=== PATIENT | female | born 1995 | race African-American/Black ===

== ENCOUNTER 2017-07-01 18:54 | Emergency (ER) | payer MEDICAID ==
[2017-07-01 18:56] VITALS: BP 126/74; PULSE 104; RESP 16; TEMP 99.8; O2SAT 99
--- NOTE | 2017-07-01 19:24 | PD ---
HPI Chief Complaint: Cold / Flu Symptoms Time Seen by Provider: 19:16 Travel History International Travel<30 days: No Contact w/Intl Traveler<30days: No Traveled to known affect area: No History of Present Illness HPI 22-year-old black female presents to the emergency department with a one-day history of fever with a MAXIMUM TEMPERATURE 103, myalgias, arthralgias and general malaise. 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 She denies any vomiting but feels nausea at times. No ear pain, sore throat, cough, shortness of breath, vomiting, abdominal pain or dysuria or rashes. PFSH Past Medical History Medical History: Denies Significant Hx Tetanus Vaccination: < 5 Years ?: Unknown LMP: ON NEXPLANON : 1 Para: 1 Social History Alcohol Use: No Tobacco Use: No Substance Use: No Allergies-Medications (Allergen,Severity, Reaction): Coded Allergies: amoxicillin (Unverified Allergy, Intermediate, HIVES,VOMITING, 03/19/17) clavulanic acid (Unverified Allergy, Intermediate, HIVES,VOMITING, 03/19/17 ) Reported Meds & Prescriptions Reported Meds & Active Scripts Active No Active Prescriptions or Reported Medications Review of Systems Except as stated in HPI: all other systems reviewed are Neg Physical Exam Narrative GENERAL: Well-developed, well-nourished in no acute distress. Nontoxic appearing. HEAD: Normocephalic, atraumatic. EYES: Pupils equal round and reactive. Extraocular motions intact. No scleral icterus. No injection or drainage. ENT: TMs clear without erythema. The external auditory canals clear. Nose: clear . Posterior pharynx is pink and moist. No tonsillar edema or exudate. Uvula midline. Airway patent. NECK: Trachea midline.Supple, nontender, moves head freely. No central bony tenderness or spasm. CARDIOVASCULAR: Regular rate and rhythm without murmurs, gallops, or rubs. RESPIRATORY: Clear to auscultation. Breath sounds equal bilaterally. No wheezes , rales, or rhonchi. GASTROINTESTINAL: Abdomen soft, non-tender, nondistended. No hepato-splenomegaly , or palpable masses. No guarding. EXTREMITIES: No clubbing, cyanosis, or edema. No joint tenderness, effusion, or edema noted. BACK: Nontender without deformity or crepitance. No flank tenderness. Data Data Last Documented VS Vital Signs Date Time Temp Pulse Resp B/P (MAP) Pulse Ox O2 Delivery O2 Flow Rate FiO2 07/01/17 18:56 99.8 104 16 126/74 (91) 99 Room Air Orders Orders Ed Discharge Order (07/01/17 19:21) MDM Medical Decision Making Medical Screen Exam Complete: Yes Emergency Medical Condition: Yes Medical Record Reviewed: Yes Differential Diagnosis MDM: High Differential diagnoses: Pneumonia, bronchitis, URI, influenza Narrative Course This is an influenza-like illness Diagnosis Primary Impression: Influenza-like illness Patient Instructions: General Instructions Departure Forms: Tests/Procedures, Work Release Special Instructions: NO WORK OR SCHOOL 5 DAYS. Additional Instructions: Rest. Increase fluids. 3 Advil every 6 hours as needed for fever, and muscle pain. Followup with your Dr. in one week. Return to the ER for any problems. Scripts No Active Prescriptions or Reported Meds Disposition: 01 DISCHARGE HOME Condition: Stable Sidney Tobar Jul 01, 2017 19:24
== END 2017-07-01 19:51 | disposition home or self-care (01) ==
LOC: NEPK 18:54
DX: J11.1 Influenza due to unidentified influenza virus with other respiratory manifestations (principal)
CPT/HCPCS: 99282

== ENCOUNTER 2017-07-04 12:01 | Emergency (ER) | payer MEDICAID ==
[~2017-07-04] VITALS: Ht 157.5 cm; Wt 75.0 kg
[2017-07-04 12:02] VITALS: BP 138/74; PULSE 106; RESP 18; TEMP 99.7; O2SAT 100
[2017-07-04] MEDS ORDERED: SODIUM CHLOR 0.9% 1000 ML INJ 1,000 ML IV SCH (12:30)
[2017-07-04] MEDS ORDERED: SODIUM CHLORIDE 0.9% FLUSH 10 ML FLUSH IV FLUSH PRN (12:30)
[2017-07-04] MEDS ORDERED: ETON1IMP I-DERMAL (12:35)
--- NOTE | 2017-07-04 12:39 | PD ---
HPI Chief Complaint: Abdominal Pain Time Seen by Provider: 12:15 Travel History International Travel<30 days: No Contact w/Intl Traveler<30days: No Traveled to known affect area: No History of Present Illness HPI 22-year-old female presents to the emergency department for evaluation of abdominal pain that started approximately 3 weeks ago. She states she started with fevers on Friday up to 104. Patient reports intermittent in bloody vaginal discharge over the past 3 weeks. She states that she went to the [facility] here at [place] and was sent here to the emergency department. Patient states that while in the clinic, she had a negative urine test and also had a pelvic exam completed. However, there is no note in the computer to see what they did. The patient denies any current chest pain or shortness of breath. She reports lower abdominal pain, worse in the right lower quadrant. Patient denies any urinary symptoms. She reports one sexual partner for the past year and a half and denies risk of STD. She denies any previous abdominal surgeries. Moderate severity. No exacerbating or alleviating factors. PFSH Past Medical History Medical History: Denies Significant Hx Tetanus Vaccination: Unknown ?: Not LMP: APR 2017 : 1 Para: 1 Past Surgical History Surgical History: No Previous Surgery Social History Alcohol Use: No Tobacco Use: No Substance Use: No Allergies-Medications (Allergen,Severity, Reaction): Coded Allergies: amoxicillin (Unverified Allergy, Intermediate, HIVES,VOMITING, 07/04/17) clavulanic acid (Unverified Allergy, Intermediate, HIVES,VOMITING, 07/04/17 ) Reported Meds & Prescriptions Reported Meds & Active Scripts Active Reported Nexplanon Implant (Etonogestrel Implant) 68 Mg Imp 68 Mg I-DERMAL ONCE Review of Systems Except as stated in HPI: all other systems reviewed are Neg Physical Exam Narrative GENERAL: Well-nourished, well-developed female patient, ambulatory. Afebrile. SKIN: Focused skin assessment warm/dry. HEAD: Normocephalic. Atraumatic. EYES: No scleral icterus. No injection or drainage. NECK: Supple, trachea midline. No JVD or lymphadenopathy. CARDIOVASCULAR: Regular rate and rhythm without murmurs, gallops, or rubs. RESPIRATORY: Breath sounds equal bilaterally. No accessory muscle use. Lungs sounds are clear to auscultation. GASTROINTESTINAL: Abdomen soft and nondistended. Patient has tenderness over the right lower quadrant suprapubic region. MUSCULOSKELETAL: No cyanosis, or edema. BACK: Nontender without obvious deformity. No CVA tenderness. Data Data Last Documented VS Vital Signs Date Time Temp Pulse Resp B/P (MAP) Pulse Ox O2 Delivery O2 Flow Rate FiO2 07/04/17 12:52 100 16 112/75 (87) 99 Room Air 07/04/17 12:02 99.7 Orders Orders Complete Blood Count With Diff (07/04/17 12:30) Comprehensive Metabolic Panel (07/04/17 12:30) Lipase (07/04/17 12:30) Prothrombin Time / Inr (Pt) (07/04/17 12:30) Act Partial Throm Time (Ptt) (07/04/17 12:30) Urinalysis - C+S If Indicated (07/04/17 12:30) Ct Abd/Pel W Iv Contrast(Rout) (07/04/17 12:30) Iv Access Insert/Monitor (07/04/17 12:30) Ecg Monitoring (07/04/17 12:30) Oximetry (07/04/17 12:30) Sodium Chlor 0.9% 1000 Ml Inj (Ns 1000 M (07/04/17 12:30) Sodium Chloride 0.9% Flush (Ns Flush) (07/04/17 12:30) Ed Urine Pregnancytest Poc (07/04/17 12:30) Iohexol 350 Inj (Omnipaque 350 Inj) (07/04/17 13:01) Labs Laboratory Tests Test 07/04/17 12:50 White Blood Count 6.1 TH/MM3 Red Blood Count 5.55 MIL/MM3 Hemoglobin 14.3 GM/DL Hematocrit 41.4 % Mean Corpuscular Volume 74.7 FL Mean Corpuscular Hemoglobin 25.9 PG Mean Corpuscular Hemoglobin Concent 34.6 % Red Cell Distribution Width 14.5 % Platelet Count 216 TH/MM3 Mean Platelet Volume 8.6 FL Neutrophils (%) (Auto) 61.8 % Lymphocytes (%) (Auto) 25.9 % Monocytes (%) (Auto) 11.6 % Eosinophils (%) (Auto) 0.0 % Basophils (%) (Auto) 0.7 % Neutrophils # (Auto) 3.8 TH/MM3 Lymphocytes # (Auto) 1.6 TH/MM3 Monocytes # (Auto) 0.7 TH/MM3 Eosinophils # (Auto) 0.0 TH/MM3 Basophils # (Auto) 0.0 TH/MM3 CBC Comment DIFF FINAL Differential Comment Prothrombin Time 11.4 SEC Prothromb Time International Ratio 1.1 RATIO Activated Partial Thromboplast Time 36.7 SEC Urine Color YELLOW Urine Turbidity CLEAR Urine pH 6.0 Urine Specific [place] 1.026 Urine Protein TRACE mg/dL Urine Glucose (UA) NEG mg/dL Urine Ketones 80 mg/dL Urine Occult Blood MOD Urine Nitrite NEG Urine Bilirubin NEG Urine Urobilinogen LESS THAN 2.0 MG/DL Urine Leukocyte Esterase SMALL Urine RBC 6 /hpf Urine WBC 4 /hpf Urine Squamous Epithelial Cells 2 /hpf Urine Mucus FEW /lpf Microscopic Urinalysis Comment CULT NOT INDICATED Blood Urea Nitrogen 7 MG/DL Creatinine 0.71 MG/DL Random Glucose 83 MG/DL Total Protein 7.9 GM/DL Albumin 4.1 GM/DL Calcium Level 8.5 MG/DL Alkaline Phosphatase 48 U/L Aspartate Amino Transf (AST/SGOT) 17 U/L Alanine Aminotransferase (ALT/SGPT) 24 U/L Total Bilirubin 0.5 MG/DL Sodium Level 135 MEQ/L Potassium Level 3.9 MEQ/L Chloride Level 102 MEQ/L Carbon Dioxide Level 26.8 MEQ/L Anion Gap 6 MEQ/L Estimat Glomerular Filtration Rate 127 ML/MIN Lipase 188 U/L MDM Medical Decision Making Medical Screen Exam Complete: Yes Emergency Medical Condition: Yes Medical Record Reviewed: Yes Interpretation(s) Last Impressions Abdomen/Pelvis CT 07/04/17 1230 Signed Impressions: Service Date/Time: Tuesday, July 04, 2017 12:49 - CONCLUSION: Normal examination. Juan Del Valle Jr., MD Differential Diagnosis UTI versus pyelonephritis versus appendicitis versus cervicitis Narrative Course 22-year-old female presents to the emergency department for evaluation of abdominal pain that has been ongoing for 3 weeks of intermittent abnormal vaginal discharge. She apparently was seen in the family practice clinic and was sent to the emergency department. I'm trying to contact the physician that saw her for further information. CBC, CMP, lipase, PTT, PT/INR, UA, urine test are ordered and pending. CT abdomen/pelvis with IV contrast is ordered and pending. I spoke with the Dr. Akers who saw the patient. He states that he did a urine test which was negative. He also did a vaginal exam and sent cultures. He states there were no significant findings on vaginal exam. No cervical motion tenderness or significant drainage. CBC shows no acute abnormality. CMP is unremarkable. Lipase is 188. Coags show no acute abnormality. UA is negative for acute infection. UPT is negative. CT abdomen/pelvis is normal. The patient was seen here 3 days ago for an influenza-like illness. It appears that she may have 2 different things going on, a viral illness as well as abdominal cramping, possibly from menstrual cycle. This is irregular from her control implant. The patient states she is feeling much better at this time and would like to go to work. I discussed prophylactic treatment for chlamydia, gonorrhea. However, she declines this stating she has had one sexual partner will wait for results. She is instructed to follow back up with her primary care physician. She is to return here for any acute worsening of symptoms. She verbalizes agreement and understanding. The patient was discharged in stable condition with instructions, including return instructions and follow up instructions. Diagnosis Primary Impression: Abdominal pain Qualified Codes: R10.30 - Lower abdominal pain, unspecified Referrals: Primary Care Physician 2 days Patient Instructions: Abdominal Pain (ED), General Instructions Departure Forms: Tests/Procedures, Work Release Enter return to work date: Jul 04, 2017 Additional Instructions: Follow-up with your primary care physician. Return to the emergency department for any acute worsening of symptoms. Med/Other Pt SpecificInfo: No Change to Meds Disposition: 01 DISCHARGE HOME Condition: Stable Osvaldo,Yolande OSORIO Jul 04, 2017 12:39
[2017-07-04 12:51] VITALS: PULSE 100; RESP 16; O2SAT 99
[2017-07-04 12:52] VITALS: BP 112/75; PULSE 100; RESP 16; O2SAT 99
[2017-07-04] MEDS ORDERED: IOHEXOL 350 MG/ML 10 ML VIAL (for RAD DIAG) IVCONTRAST ONE (13:01)
[2017-07-04 13:03] LABS: AUTOMATED NEUTROPHIL # 3.8 TH/MM3 (1.8-7.7); BASOPHIL % 0.7 % (0.0-2.0); HEMATOCRIT 41.4 % (35.0-46.0); HEMO FLAGS DIFF FINAL; LYMPH % 25.9 % (9.0-44.0); LYMPHOCYTE # 1.6 TH/MM3 (1.0-4.8); MEAN CELL VOLUME 74.7 FL (80.0-100.0); MEAN CORPUSCULAR HEMOGLOBIN 25.9 PG (27.0-34.0); MEAN CORPUSCULAR HGB CONC 34.6 % (32.0-36.0); MONO % 11.6 % (0.0-8.0); NEUT % 61.8 % (16.0-70.0); PLATELET COUNT 216 TH/MM3 (150-450); RED BLOOD COUNT 5.55 MIL/MM3 (4.00-5.30); RED CELL DISTRIBUTION WIDTH 14.5 % (11.6-17.2); WHITE BLOOD COUNT 6.1 TH/MM3 (4.0-11.0)
[2017-07-04 13:07] LABS: BLOOD, URINE MOD (NEG); COMMENT (UR) CULT NOT INDICATED; CULTURE IF INDICATED CULT NOT INDICATED; GLUCOSE,URINE NEG (NEG); KETONE, URINE 80 mg/dL (NEG); MUCUS URINE FEW /lpf (OCC); NITRITE,URINE NEG (NEG); SQUAMOUS EPITHELIAL CELL URINE 2 /hpf (0-5); URINE COLOR YELLOW (YELLW/STRAW)
[2017-07-04 13:12] LABS: APTT (PATIENT) 36.7 SEC (24.3-30.1); INTERNATIONAL NORMALIZED RATIO 1.1 RATIO; PROTHROMBIN TIME - PATIENT 11.4 SEC (9.8-11.6)
[2017-07-04 13:29] LABS: ALT (GPT) 24 U/L (9-42); ANION GAP 6 MEQ/L (5-15); AST (GOT) 17 U/L (16-38); BICARBONATE 26.8 MEQ/L (21.0-32.0); BLOOD UREA NITROGEN 7 MG/DL (7-18); CHLORIDE 102 MEQ/L (98-107); GLOMERULAR FILTRATION RATE 127 ML/MIN (>89); POTASSIUM 3.9 MEQ/L (3.5-5.1); SODIUM (NA) 135 MEQ/L (136-145)
--- NOTE | 2017-07-04 13:29 | RADRPT ---
EXAM DATE/TIME: 07/04/2017 12:49 [facility] COMPARISON: No previous studies available for comparison. INDICATIONS : Right lower region pain for around three weeks. IV CONTRAST: 70 cc Omnipaque 350 (iohexol) IV ORAL CONTRAST: No oral contrast ingested. RADIATION DOSE: 7.31 CTDIvol (mGy) MEDICAL HISTORY : None SURGICAL HISTORY : None. ENCOUNTER: Initial ACUITY: 3 weeks PAIN SCALE: 6/10 LOCATION: Right lower quadrant TECHNIQUE: Volumetric scanning of the abdomen and pelvis was performed. Using automated exposure control and ad justment of the mA and/or kV according to patient size, radiation dose was kept as low as reasonably achievable to obtain optimal diagnostic quality images. DICOM format image data is available electro nically for review and comparison. FINDINGS: LOWER LUNGS: The visualized lower lungs are clear. LIVER: Homogeneous density without lesion. There is no dilation of the biliary tree. No calcified gallston es. SPLEEN: Normal size without lesion. PANCREAS: Within normal limits. KIDNEYS: Normal in size and shape. There is no mass, stone or hydronephrosis. ADRENAL GLANDS: Within normal limits. VASCULAR: There is no aortic aneurysm. BOWEL/MESENTERY: The stomach, small bowel, and colon demonstrate no acute abnormality. There is no free intraperitone al air or fluid. ABDOMINAL WALL: Within normal limits. RETROPERITONEUM: There is no lymphadenopathy. BLADDER: No wall thickening or mass. REPRODUCTIVE: Within normal limits. INGUINAL: There is no lymphadenopathy or hernia. MUSCULOSKELETAL: Within normal limits for patient age. CONCLUSION: Normal examination. Juan Del Valle Jr., MD on July 04, 2017 at 13:21 Board Certified Radiologist. This report was verified electronically.
[2017-07-04 13:31] LABS: ALKALINE PHOSPHATASE 48 U/L (45-117); TOTAL BILIRUBIN ADULT 0.5 MG/DL (0.2-1.0)
== END 2017-07-04 14:16 | disposition home or self-care (01) ==
LOC: NEPC 12:01
DX: R10.30 Lower abdominal pain, unspecified (principal); Z88.0 Allergy status to penicillin; Z88.8 Allergy status to other drugs, medicaments and biological substances; Z79.899 Other long term (current) drug therapy
CPT/HCPCS: 74177; 80053; 81001; 83690; 84703; 85025; 85610; 85730; 99285; J7030; Q9967